=== PATIENT | female | born 1950 | race Caucasian/White ===

== ENCOUNTER 2021-02-18 08:44 | Emergency (ER) | payer MEDICARE, SELFPAY ==
[2021-02-18 08:55] VITALS: BP 142/91; PULSE 77; RESP 16; TEMP 36.6; O2SAT 99
--- NOTE | 2021-02-18 09:52 | ED.GENADULT ---
HPI - General Adult General Chief complaint: Skin/Abscess/Foreign Body Stated complaint: poison jorge Source: patient Mode of arrival: ambulatory Limitations: no limitations History of Present Illness HPI narrative: Patient is a 70-year-old female who presents to the urgent care via POV for evaluation of rash located on right side of face that has been present since yesterday. She believes her rash is caused by poison jorge since she was at her son's house. She states [place]. She reports the rash is erythematous and pruritic. She also reports mild swelling in the area of rash. Mild relief with calamine and hydrocortisone ointment. Nothing worsens rash. Denies a history of hypertension, diabetes, and renal insufficiency. Related Data Allergies Allergy/AdvReac Type Severity Reaction Status Date / Time No Known Allergies Allergy Verified 02/18/21 09:23 Review of Systems Review of Systems: Denies recent/new changes in soaps, perfumes, lotions, detergents, and shampoos. Denies working with chemicals. Denies new or changes in medications/foods. Pertinent negatives fever, chills, sweats, change in appetite, malaise, poor p.o. intake, recent weight loss, change in appetite, myalgias, lymphadenopathy, LOC, dizziness, burning sensation, petechiae, blistering, streaking, warmth, lesions, easy bruising, lip/tongue/throat swelling, facial swelling, abdominal pain, nausea, vomiting, numbness, tingling, loss of sensation, cough, wheezing, chest pain, and heart palpitations/murmurs. PMFSH Comments I have reviewed and agree with the patient's past medical, surgical, social, and family hx as documented by the RN. There is no relevant family history pertinent to the presenting complaint. Exam Narrative: GENERAL: Well-appearing, well-nourished, and in no acute distress. HEAD: Normocephalic, atraumatic. EYES: PERRLA and EOMI. No evidence of erythema, swelling, or drainage. ENT: Nares clear, no rhinorrhea or epistaxis.Mucous membranes moist and pink. Uvula is midline without erythema and swelling. No evidence of obstruction, petechial rash, cobblestoning, lesions, ulcers, erythema, swelling, exudates, peritonsillar abscess, tenting, or drooling. Breath odor and voice normal. NECK: Supple. No Lymphadenopathy or nuchal rigidity appreciated. CHEST: Bilateral lung cohn are clear to auscultation. No respiratory distress. No evidence of cough or pleuritic cp upon examination. HEART: Regular rate and rhythm. No murmur, gallop, or rub heard. EXTREMITIES: Normal range of motion. No edema. SKIN: Warm, dry. Left cheek and lateral left face is erythematous and mildly edematous. No evidence of cellulitis, abscess, streaking, induration, abrasions/lacerations, petechiae, hematoma, contusion, drainage, or bleeding. NEURO: No focal deficits. Alert and oriented x3. Course Vital Signs Vital signs: Vital Signs Temperature 97.9 F 02/18/21 08:55 Pulse Rate 77 02/18/21 08:55 Respiratory Rate 16 02/18/21 08:55 Blood Pressure 142/91 H 02/18/21 08:55 Pulse Oximetry 99 02/18/21 08:55 Temperature 97.9 F 02/18/21 08:55 Pulse Rate 77 02/18/21 08:55 Respiratory Rate 16 02/18/21 08:55 Blood Pressure 142/91 H 02/18/21 08:55 Pulse Oximetry 99 02/18/21 08:55 Due to an elevated blood pressure, I had a detailed discussion with the patient and/or guardian regarding the need for follow-up with their primary care provider within the next 3-4 days. Patient verbalized understanding and agreed. Medical Decision Making Differential Diagnosis Differential Diagnosis: Contact/allergic dermatitis, atopic dermatitis, psoriasis, cellulitis, tinea infection, parasite infection, shingles Medical Records Medical records reviewed: Yes I reviewed the external patient's medical records. Vital Signs Vital Signs: Vital Signs Temperature 97.9 F 02/18/21 08:55 Pulse Rate 77 02/18/21 08:55 Respiratory Rate 1
[2021-02-18] MEDS: methylPREDNISolone SOD SUCC 125 MG VIAL IM (09:58)
== END 2021-02-18 10:15 | disposition home or self-care (01) ==
PROVIDERS: Emergency Provider Nurse Practitioner Family; PCP Family Medicine
DX: R21 Rash and other nonspecific skin eruption (principal)
CPT/HCPCS: 96372; 99213; G0463; J2930